=== PATIENT | female | born 1995 | race Caucasian/White ===

== ENCOUNTER 2017-12-07 07:59 | Outpatient (CLI) | payer BC, OTHER | END 2017-12-07 08:00 | disposition home or self-care (01) | LOC: BICCT 07:59 | PROVIDERS: ATTEND Allergy & Immunology | DX: Z03.89 Encounter for observation for other suspected diseases and conditions ruled out (principal) ==

== ENCOUNTER 2018-12-22 07:21 | Outpatient (CLI) | payer BC ==
--- NOTE | 2018-12-22 08:29 | ULT ---
BILATERAL LOWER EXTREMITY VENOUS DUPLEX STUDY: INDICATION: Bilateral lower extremity pain and edema. FINDINGS: Deep veins of both lower extremities evaluated with ultrasound, spectral analysis, and compression. Deep veins show normal blood flow and compression. No evidence of DVT identified in either lower ext remity. Prominent lymph nodes are seen in the inguinal regions bilaterally. IMPRESSION: 1. No evidence of lower extremity deep vein thrombosis. 2. Nonspecific inguinal lymph nodes. POS: OFF
== END 2018-12-22 07:22 | disposition home or self-care (01) ==
LOC: BICULT 07:21
PROVIDERS: ATTEND Internal Medicine
DX: R25.2 Cramp and spasm (principal)
CPT/HCPCS: 93970

== ENCOUNTER 2021-03-06 08:16 | Outpatient (CLI) | payer BC ==
[2021-03-06 09:06] LABS: Estimated GFR-MDRD - POC Greater than 90
[2021-03-06] MEDS ORDERED: Magnevist 469MG/ML 20 ML VIAL ONE (11:08)
== END 2021-03-06 08:17 | disposition home or self-care (01) ==
LOC: BICMRI 08:16
PROVIDERS: ATTEND Student in an Organized Health Care Education/Training Program
DX: H90.3 Sensorineural hearing loss, bilateral (principal)
CPT/HCPCS: 70553; 82565; A9579

== ENCOUNTER 2021-09-27 07:47 | Outpatient (CLI) | payer BC | END 2021-09-27 07:48 | disposition home or self-care (01) | LOC: BICCT 07:47 | PROVIDERS: ATTEND Internal Medicine | DX: N13.30 Unspecified hydronephrosis (principal); R91.1 Solitary pulmonary nodule; R91.8 Other nonspecific abnormal finding of lung field | CPT/HCPCS: 71250; 76770 ==

== ENCOUNTER 2021-11-21 18:00 | Outpatient (CLI) | payer BC | END 2021-11-21 18:01 | disposition home or self-care (01) | LOC: SLEEPLAB 18:00 | PROVIDERS: ATTEND Physician Assistant | DX: G47.10 Hypersomnia, unspecified (principal); G47.33 Obstructive sleep apnea (adult) (pediatric); R53.83 Other fatigue; F41.9 Anxiety disorder, unspecified; R06.83 Snoring; G47.00 Insomnia, unspecified | CPT/HCPCS: 95800 ==

== ENCOUNTER 2022-12-26 12:41 | Outpatient (CLI) | payer BC | END 2022-12-26 12:42 | disposition home or self-care (01) | LOC: BICCT 12:41 | PROVIDERS: ATTEND Internal Medicine | DX: R91.1 Solitary pulmonary nodule (principal) | CPT/HCPCS: 71250 ==

== ENCOUNTER 2023-04-30 08:15 | Outpatient (CLI) | payer BC | END 2023-04-30 08:16 | disposition home or self-care (01) | LOC: BICRAD 08:15 | PROVIDERS: ATTEND Internal Medicine Critical Care Medicine | DX: R06.00 Dyspnea, unspecified (principal) | CPT/HCPCS: 71046 ==